=== PATIENT | female | born 1970 | race Two or more races ===

== ENCOUNTER 2025-03-15 10:15 | Emergency (ER) | payer OTHER ==
[~2025-03-15] VITALS: Ht 154.9 cm; Wt 67.4 kg
[2025-03-15 11:19] LABS: Urine Protein, UAD 1+ (Negative)
[2025-03-15] MEDS ORDERED: NITR-87 PO (11:31)
--- NOTE | 2025-03-15 11:34 | ED.PDOC ---
General HPI Comments 54 year old female presented with symptoms suggestive of a urinary tract infection onset 1 week. The patient reported experiencing discomfort and discoloration in the urine for about a week. The patient mentioned having similar symptoms three years ago. The patient did not report fever, nausea, or vomiting. The patient was concerned about the symptoms worsening to include burning during urination but reported not having burning with urination curren tly. The patient had a thyroidectomy approximately ten to fifteen years ago and was taking levothyroxine and lorazepam. The patient was not on any other medications and did not report having diabetes. Chief Complaint: Urinary Time Seen by MD: 11:30 Primary Care Provider: EVERT Geronimo notes: Medications, Allergies Allergies: Coded Allergies: NO KNOWN ALLERGIES (Unverified , 11/15/12) Home Meds Active Scripts Nitrofurantoin Monohydrate Mac (Macrobid) 100 Mg Cap, 100 MG PO BID for 7 Days, #14 CAP 0 Refills Prov:WILLIAM BUSTILLO NP 03/15/25 Information Source: Patient Mode of Arrival: Ambulatory Severity: Moderate Timing: Weeks Duration: Since onset Prehospital treatment: None Onset: Spontaneous Symptoms: Dysuria, Frequency History of: UTI Modifying factors: None associated signs and symptoms: Frequency Past Medical History PAST MEDICAL HISTORY: HTN, Thyroid Surgical History: Thyroidectomy [employer] History: No Pertinent [employer] History Family History Family History: Unobtainable Social History Smoker: Cigarettes, Less Than 1 Pack/Day Alcohol: Occasionally Drugs: Denies Drug Use Lives In: Home All Other Systems: Reviewed and Negative (as per HPI) Physical Exam General Appearance: No Apparent Distress, Normal HEENT: Normal ENT Inspection, Pharynx Normal, TMs Normal Neck: Full Range of Motion, Non-Tender, Normal, Normal Inspection Respiratory: Chest Non-Tender, Lungs Clear, No Accessory Muscle Use, No Respiratory Distress, Normal Breath Sounds Cardiovascular: No Edema, No JVD, No Murmur, No Gallop, Normal Peripheral Pulses, Regular Rate/Rhythm Breast Exam: Deferred Gastrointestinal: No Organomegaly, Non Tender, No Pulsatile Mass, Normal Bowel Sounds, Soft Genitalia: Deferred Pelvic: Deferred Rectal: Deferred Extremities: No calf tenderness, Normal capillary refill, Normal inspection, Normal range of motion, Non-tender, No pedal edema Musculoskeletal : Apperance: Normal Neurologic: Alert, ore buyer II-XII nml as Tested, No Motor Deficits, Normal Affect, Normal Mood, No Sensory Deficits Cerebellar Function: Normal Reflexes: Normal Skin: Dry, Normal Color, Warm Lymphatic: No Adenopathy Was a procedure done? Was a procedure done?: No Differential Diagnosis Kidney stone (Female): Other X-Ray, Labs, Meds, VS Vital Signs Date Time Temp Pulse Resp B/P (MAP) Pulse Ox O2 Delivery O2 Flow Rate FiO2 03/15/25 11:43 98.3 78 16 142/68 (92) 98 98.3 03/15/25 11:43 78 16 98 03/15/25 10:17 97.9 76 18 125/63 96 97.9 Lab Test 03/15/25 10:46 Range/Units Urine Color Colorless Yellow Urine Clarity Turbid H Clear Urine pH 6.0 5.0-9.0 Urine Specific [place] 1.022 1.001-1.035 Urine Protein 1+ H Negative Urine Ketones Trace Negative Urine Blood 2+ H Negative /uL Urine Nitrite 2+ H Negative Urine Bilirubin Negative Negative Urine Urobilinogen Normal Negative mg/dL Urine Leukocyte Esterase 3+ Negative /uL Urine RBC 13 0 - 4 /hpf Urine Microscopic WBC 414 H 0-5 /HPF Urine Squamous Epithelial Cells Few <5 /hpf Urine Bacteria Few H None Seen /hpf Urine Mucus Few None Seen Urine Glucose Normal Normal mg/dL X-Ray, Labs, Meds, VS Comment 54 year old female presented with symptoms suggestive of a urinary tract infection onset 1 week Patient arrives alert and oriented, ABC's intact, afebrile, vital signs stable, saturating well in room air labs were ordered. Urinalysis was ordered to rule out UTI or hematuria. Urinary Tract Infection (UTI): The patient's symptoms of discomfort and discoloration in the urine, along with a history of similar symptoms, were consistent with a urinary tract infection. The absence of burning during urination was noted, but the patient was advised to monitor for symptom progression. - Prescribed Macrobid (Nitrofurantoin) to be taken twice a day for seven days. Patient is stable for discharge at this time. External notes reviewed. Test results and diagnostic imaging interpreted. All diagnostic findings, discharge care, education and instructions provided Follow-up with PCP in 2 to 3 days Patient verbalized understanding and agreed to treatment plan Vital signs stable, afebrile, no acute distress noted Patient ambulatory with strong steady gait Advised to return precautions for any new or worsening symptoms, return to ER immediately for re-evaluation Patient is aware that the purpose of this visit was for an acute medical emergency requiring emergent stabilization. Chronic conditions, including malignancies have not been ruled out. Patient is instructed to follow up with PCP as directed and discharge instructions for continued care and workup. If unable to arrange follow-up, patient is to return to the emergency department for reassessment. Patient (parent or legal guardian if applicable) was given verbal and written discharge instructions and acknowledges understanding. Time of 1ST Reevaluation: 12:00 Reevaluation 1ST: Improved Patient Education/Counseling: Diagnosis, Treatment Family Education/Counseling: No Family Present SEPSIS Sepsis Screen Date sepsis recognized/suspect: Mar 15, 2025 Time Sepsis recognized/suspect: 1016 Recent Procedure: No On Antibiotic Therapy: No Respiratory Rate >20: No Heart Rate >90: No Temp<36 C (96.8 F) or >38.3 C: No SBP <90 or MAP <65 mmHG: No New Acute Mental Status Change: No Is the patient on CPAP, BIPAP,: No Vital Signs Date Time Temp Pulse Resp B/P (MAP) Pulse Ox O2 Delivery O2 Flow Rate FiO2 03/15/25 11:43 98.3 78 16 142/68 (92) 98 98.3 03/15/25 11:43 78 16 98 03/15/25 10:17 97.9 76 18 125/63 96 97.9 Departure 1 Departure Time of Disposition: 11:31 Impression: Primary Impression: UTI (urinary tract infection) Qualified Codes: N30.00 - Acute cystitis without hematuria Disposition: HOME / SELF CARE / HOMELESS Condition: Stable e-Prescriptions Nitrofurantoin Monohydrate Mac (Macrobid) 100 Mg Cap 100 MG PO BID for 7 Days, #14 CAP 0 Refills Prov: WILLIAM BUSTILLO [employer] MANAGER 03/15/25 Discharged With: Self Critical Care Note Critical Care Time?: No Stability Stability form required: No Heart Score Heart Score: Heart Score Response (Comments) Value History N/A 0 EKG N/A 0 Age N/A 0 Risk Factors N/A 0 Troponin N/A 0 Total 0 I personally scribed for WILLIAM BUSTILLO [employer] MANAGER ([email or web address]) on 03/15/25 at 11:34. Electronically submitted by Irma Haque ([email or web address]). WILLIAM BUSTILLO NP Mar 15, 2025 11:34
[2025-03-15 11:43] VITALS: BP 142/68; PULSE 78; RESP 16; TEMP 98.3; O2SAT 98
== END 2025-03-15 11:45 | disposition home or self-care (01) ==
LOC: ER 10:15
DX: N39.0 Urinary tract infection, site not specified (principal); F17.210 Nicotine dependence, cigarettes, uncomplicated; F10.90 Alcohol use, unspecified, uncomplicated; I10 Essential (primary) hypertension; Z90.89 Acquired absence of other organs; Z87.440 Personal history of urinary (tract) infections
CPT/HCPCS: 81001